=== PATIENT | male | born 1980 | race Caucasian/White ===

== ENCOUNTER 2017-04-10 07:50 | Emergency (ER) | payer MEDICAID, SELFPAY ==
[2017-04-10 07:51] VITALS: BP 148/100; PULSE 70; RESP 18; TEMP 36.4; O2SAT 99; BMI 27.3
--- NOTE | 2017-04-10 08:01 | RAD_ITS ---
STUDY: X-RAY - LEFT KNEE REASON FOR EXAM: Male, 36 years old. Increasing pain. No known injury. TECHNIQUE: 4 view(s) of the knee. COMPARISON: None. FINDINGS: Normal visualized distal femur. Normal visualized proximal tibia and fibula. Normal proximal tibiofibular articulation. Normal medial femorotibial compartment. Normal lateral femorotibial compartment. Normal patellofemoral articulation. Degenerative spurring is seen along the superior anterior aspect of the patella. The soft tissue structures are unremarkable. RAD/Knee 4 or More Views IMPRESSION: Degenerative spur is seen at the insertion of the quadriceps muscle. Electronically Signed: Kb Mac MD at 8:45 EST Tel [phone], Service support ,
--- NOTE | 2017-04-10 08:11 | ED.DCSUM_ITS ---
- ER Visit Summary Date of Service: 04/10/17 Chief Complaint: Left knee pain History of Present Illness: The patient is a 36 M presenting with left knee pain ?2 months. Patient states that a couple of days ago he was walking in mud and exacerbated his pain. He was seen by Dr. Talon Forde in February. He was referred to physical therapy. He states that PT did improve his pain. He states he has been off work. He states when he walked in the mud and exerted himself on Monday, the pain worsened. He has been taking ibuprofen at home. He is able to walk. Denies other complaints. Physical Examination: Vitals are stable. Patient is afebrile. Alert no acute distress. HEENT exam is unremarkable. Lungs are clear and equal bilaterally. Heart is regular rate and rhythm. Extremities mild left anterior knee tenderness. No effusion. No warmth or erythema. Active full range of motion. Skin is warm and dry. Remainder of exam is unremarkable. Emergency Department Course and Treatment: Patient is given Toradol IM. Left knee x-ray shows no acute process. Patient is given a prescription for Naprosyn. Advised follow-up with Dr. Forde as needed. Advised return to ED if worsening complaints. Disposition: Discharge home Impression: Left knee pain, acute on chronic This note was generated with [employer] dictation software. It may contain incorrect words, spelling, and punctuation that were not noted in review of the chart prior to signing ED Disposition - Plan for ED Patient: Chief Complaint: Lower Extremity Injury Instructions: ED Sprain Knee Prescriptions: Naproxen [Naprosyn] 500 mg PO BID PRN #20 tablet Referrals: Jh Butcher MD [Primary Care Provider] - Talon Forde MD [STAFF PHYSICIAN] -
[2017-04-10] MEDS: Ketorolac 60 MG/2 ML Vial IM (08:15)
--- NOTE | 2017-04-10 08:18 | ED.DEP ---
ED Disposition - Plan for ED Patient: Chief Complaint: Lower Extremity Injury Instructions: ED Sprain Knee Prescriptions: Naproxen [Naprosyn] 500 mg PO BID PRN #20 tablet Referrals: Jh Butcher MD [Primary Care Provider] - Talon Forde MD [STAFF PHYSICIAN] -
[2017-04-10 09:07] VITALS: PULSE 74; RESP 18; O2SAT 98
== END 2017-04-10 09:10 | disposition home or self-care (01) ==
PROVIDERS: Emergency Provider Emergency Medicine; Family Provider Family Medicine; PCP Family Medicine
DX: M25.562 Pain in left knee (principal); G89.29 Other chronic pain; F17.220 Nicotine dependence, chewing tobacco, uncomplicated; Z79.899 Other long term (current) drug therapy
CPT/HCPCS: 73564; 96372; 99282

== ENCOUNTER 2018-05-07 12:21 | Emergency (ER) | payer MEDICAID, SELFPAY ==
[2018-05-07 12:22] VITALS: BP 161/85; PULSE 68; RESP 17; TEMP 36.4; O2SAT 100; BMI 25.8
[2018-05-07 12:26] VITALS: BP 151/90; PULSE 74; RESP 14; O2SAT 100
--- NOTE | 2018-05-07 12:46 | ED.VISSUMM ---
- ER Visit Summary Date of Service: 05/07/18 Chief Complaint: Neck pain History of Present Illness: The patient is a 37 M who states that on Monday at work he began to experience pain on the right side of his neck. When he woke on Monday was significantly worse. He was seen at [facility] given a muscle relaxant which states it makes him very tired and not helping with his pain. He notes pain with movement of the neck particularly rotation to the right. He states he feels better and is side bent position to the right. He notes that starts up by his ear and radiates anteriorly. He denies any arm or leg weakness. No visual changes. No rashes. No known connective tissue disorders. Physical Examination: Afebrile vital signs stable Gen: Well-nourished well-developed Head: Normocephalic atraumatic Eyes: Perrl EOMI ENT: TMs clear no rhinorrhea moist mucous membranes Neck: Supple no lymphadenopathy no JVD Patient has pain upon palpation along the sternocleidomastoid muscle on the right side. There are no carotid bruits. Normal carotid upstroke. No cords. CVS: Regular rate rhythm no murmurs normal S1-S2 Respiratory: No distress clear to auscultation bilaterally chest nontender Abdomen: Soft nontender nondistended normal bowel sounds no masses Back: Nontender Extremity: Nontender no edema Skin: Normal color no rash Neuro: alert orientated ?3 CN II-XII intact normal strength sensation reflexes gait cerebellar Psych: Normal affect normal mood Emergency Department Course and Treatment: Patient was offered benzodiazepine but again it sedating he declined. He has been taking Toradol and ibuprofen at home which I think is reasonable. Recommend he keep his appointment with his chiropractor this afternoon. Do not believe this is dissection. We talked about the natural course of this illness return if worsening or concerns. Impression: 1. Acute torticollis This note was generated with [employer] dictation software. It may contain incorrect words, spelling, and punctuation that were not noted in review of the chart prior to signing ED Disposition - Plan for ED Patient: Disposition: Home or Assisted Living Instructions: Torticollis (Wry Neck) Referrals: Jh Butcher MD [Primary Care Provider] - 1 Week if not improving
[2018-05-07 13:33] VITALS: BP 135/82; PULSE 58; O2SAT 98
== END 2018-05-07 13:34 | disposition home or self-care (01) ==
LOC: ED 13:16
PROVIDERS: Emergency Provider Emergency Medicine; Family Provider Family Medicine; PCP Family Medicine
DX: M43.6 Torticollis (principal)
CPT/HCPCS: 99282